=== PATIENT | female | born 1990 | race Caucasian/White ===

== ENCOUNTER 2017-01-19 00:32 | Emergency (ER) | payer SELFPAY ==
[~2017-01-19] VITALS: Ht 152.4 cm; Wt 54.5 kg
[~2017-01-19 00:32] MED LIST: ARMOUR THYROID120 MG PO
[2017-01-19] MEDS ORDERED: ARMOUR THYROID120 MG PO (00:35)
[2017-01-19 01:25] LABS: PH 6 (5-8); URINE APPEARANCE Clear; URINE BACTERIA None Seen /hpf; URINE BILIRUBIN Positive (NEGATIVE); URINE BLOOD Negative (NEGATIVE); URINE COLOR Yellow; URINE GLUCOSE Negative (NEGATIVE); URINE KETONE Trace (NEGATIVE); URINE WBC 0-2 /hpf
[2017-01-19 01:38] LABS: BASO # 0.1 (0.0-0.2); BASO % 0.5 % (0.0-2.0); EOS # 0.2 (0.0-0.7); EOS % 1.6 % (0-4.0); GRAN # 8.9 (1.4-6.5); GRAN % 61.2 % (42.2-75.2); HEMOGLOBIN 12.4 g/dl (12.5-16.0); LYMPH # 4.2 (1.2-3.4); MEAN CELL VOLUME 83 fl (80.0-100.0); MEAN CORPUSCULAR HEMOGLOBIN 28 pg (27.0-31.0); MEAN CORPUSCULAR HGB CONC 34 g/dl (33.0-37.0); MEAN PLATELET VOLUME 10.2 fl (7.4-10.4); MONO # 1.1 (0.1-0.6); MONO % 7.3 % (1.7-9.3); PLATELET COUNT 274 K/mm3 (130-400); RED BLOOD COUNT 4.43 M/mm3 (4.10-5.30); REDCELL DISTRIBUTION WIDTH-CV 13.1 % (11.5-14.5); WHITE BLOOD COUNT 14.6 K/mm3 (4.8-10.8)
[2017-01-19 01:42] LABS: HEMATOCRIT 36.6 % (37.0-47.0)
[2017-01-19 01:43] LABS: ADJUSTED CALCIUM 8.8 mg/dL (8.4-10.2); ALANINE AMINOTRANSFERASE 23 U/L (9-52); ALBUMIN 4.4 gm/dL (3.5-5.0); ALKALINE PHOSPHATASE 47 U/L (50-136); ANION GAP 11 mmol/L (7-16); BILIRUBIN,TOTAL 0.5 mg/dL (0.0-1.0); BLOOD UREA NITROGEN 12 mg/dL (7-17); CALCIUM 9.1 mg/dL (8.4-10.2); CARBON DIOXIDE 23 mmol/L (22-30); CHLORIDE 104 mmol/L (98-107); GLUCOSE 91 mg/dL (74-106); LIPASE 78 U/L (23-300); SODIUM 138 mmol/L (137-145); TOTAL PROTEIN 7.5 gm/dL (6.4-8.2)
[2017-01-19 01:45] LABS: C-REACTIVE PROTEIN < 0.5 mg/dL (0.0-0.9)
[2017-01-19 02:50] VITALS: BP 104/46; PULSE 90; TEMP 97.9
== END 2017-01-19 02:51 | disposition home or self-care (01) ==
LOC: COL.ER 00:32
PROVIDERS: Family Medicine
DX: K80.20 Calculus of gallbladder without cholecystitis without obstruction (principal)
CPT/HCPCS: J1170; J2405; J7030; Q9967

== ENCOUNTER 2017-01-27 10:08 | Day surgery (SDC) | payer OTHER ==
[~2017-01-27] VITALS: Ht 152.4 cm; Wt 56.4 kg
[2017-01-27 11:11] VITALS: BP 96/59; PULSE 74; TEMP 97.7
[2017-01-27 14:30] VITALS: BP 101/56; PULSE 71; TEMP 97.3
[2017-01-27] MEDS ORDERED: NORCO 325 MG-51 TAB PO (14:40)
[2017-01-27 14:45] VITALS: BP 98/59; PULSE 71
[2017-01-27 15:00] VITALS: BP 102/53; PULSE 58
[2017-01-27 15:15] VITALS: BP 97/51; PULSE 59
[2017-01-27 15:45] VITALS: BP 99/58; PULSE 65
== END 2017-01-27 16:08 | disposition home or self-care (01) ==
LOC: SDCO 10:08
DX: E03.9 Hypothyroidism, unspecified (principal); F17.210 Nicotine dependence, cigarettes, uncomplicated; N64.52 Nipple discharge; K80.10 Calculus of gallbladder with chronic cholecystitis without obstruction
CPT/HCPCS: J0330; J1100; J1885; J2405; J2704; J2765; J3010; J7120

== ENCOUNTER → 2020-03-22 | Emergency (ER) | payer SELFPAY ==
[~2020-03-22] VITALS: Ht 152.4 cm; Wt 63.6 kg
[~2020-03-22] MED LIST changes: +NORCO 325 MG-51 TAB PO
[2020-03-22 16:56] VITALS: BP 98/65; PULSE 90; TEMP 98.2
== END ==
LOC: COL.ER 16:52
DX: M54.9 Dorsalgia, unspecified (principal); Z53.21 Procedure and treatment not carried out due to patient leaving prior to being seen by health care provider

== ENCOUNTER 2021-02-05 12:00 | Emergency (ER) | payer SELFPAY ==
[~2021-02-05] VITALS: Ht 152.4 cm; Wt 68.2 kg
[2021-02-05 13:02] LABS: BASO # 0.1 K/mm3 (0.0-0.2); BASO % 0.8 % (0.0-2.0); EOS # 0.2 K/mm3 (0.0-0.7); GRAN # 7.4 K/mm3 (1.4-6.5); GRAN % 69.5 % (42.2-75.2); HEMATOCRIT 38.2 % (37.0-47.0); HEMOGLOBIN 12.1 g/dl (12.5-16.0); LYMPH # 2.2 K/mm3 (1.2-3.4); LYMPH % 20.8 % (20.0-51.0); MEAN CELL VOLUME 80 fl (80.0-100.0); MEAN CORPUSCULAR HEMOGLOBIN 25 pg (27.0-31.0); MEAN CORPUSCULAR HGB CONC 32 g/dl (33.0-37.0); MEAN PLATELET VOLUME 9.7 fl (7.4-10.4); MONO # 0.7 K/mm3 (0.1-0.6); MONO % 6.5 % (1.7-9.3); PLATELET COUNT 328 K/mm3 (130-400); REDCELL DISTRIBUTION WIDTH-CV 13.8 % (11.5-14.5)
[2021-02-05 13:15] LABS: ALANINE AMINOTRANSFERASE 18 U/L (0-55); ALKALINE PHOSPHATASE 78 U/L (40-150); ANION GAP 9 mmol/L (7-16); AST,SGOT 16 U/L (5-34); BILIRUBIN,TOTAL 0.5 mg/dL (0.2-1.2); BLOOD UREA NITROGEN 9 mg/dL (7-19); CALCIUM 9.6 mg/dL (8.4-10.2); CARBON DIOXIDE 22 mmol/L (22-29); CHLORIDE 107 mmol/L (98-107); CREATININE, serum 0.75 mg/dL (0.57-1.11); GLUCOSE 85 mg/dL (70-99); POTASSIUM 4.2 mmol/L (3.5-4.5); SODIUM 138 mmol/L (136-145); TOTAL PROTEIN 7.4 gm/dL (6.2-8.1)
[2021-02-05 13:26] LABS: TROPONIN-I < 0.010 ng/mL (0.00-0.033)
[2021-02-05 14:15] VITALS: BP 118/64; PULSE 88; TEMP 98
== END 2021-02-05 14:15 | disposition home or self-care (01) ==
LOC: COL.ER 12:00
PROVIDERS: Emergency Medicine
DX: R55 Syncope and collapse (principal); E03.9 Hypothyroidism, unspecified; Z79.890 Hormone replacement therapy